=== PATIENT | female | born 1990 ===

== ENCOUNTER 2024-03-25 05:54 | Day surgery (SDC) | payer OTHER, BC ==
[~2024-03-25] VITALS: Wt 74.4 kg
[~2024-03-25 05:54] MED LIST: CALCIPOTRIENE60 G3 TOP; CLOBETASOL EMOL15 G1 TOP; EUTHYROX175 MC1 PO; PROZAC40 MG PO; SIMPONI AR50 MG/4 M1 IV
[2024-03-25 09:15] VITALS: BP 120/70
[2024-03-25] MEDS ORDERED: Golimumab 150 MG in NS 100 ML IV SCH (09:20)
== END 2024-03-25 10:27 | disposition home or self-care (01) ==
LOC: ATC 05:54
DX: M05.79 Rheumatoid arthritis with rheumatoid factor of multiple sites without organ or systems involvement (principal); Z88.2 Allergy status to sulfonamides
CPT/HCPCS: 96365; J1602